=== PATIENT | female | born 1950 | race Asian ===

== ENCOUNTER 2017-02-19 07:32 | Day surgery (SDC) | payer OTHER ==
[~2017-02-19] VITALS: Ht 154.9 cm; Wt 58.5 kg
[2017-02-19 07:45] VITALS: BP 147/85
[2017-02-19 13:05] VITALS: BP 121/83
== END 2017-02-19 11:30 | disposition home or self-care (01) ==
LOC: DS 07:32 → EDSEX 07:32 → GI 09:30 → OR 09:30 → DS 11:30
PROVIDERS: Internal Medicine Gastroenterology
PROC: 0DBL8ZZ Excision of Transverse Colon, Via Natural or Artificial Opening Endoscopic (ICD-10-PCS; principal; 2017-02-19 09:30)
DX: Z12.11 Encounter for screening for malignant neoplasm of colon (principal); D12.3 Benign neoplasm of transverse colon
CPT/HCPCS: 45378; J1200; J1610; J2250; J2310; J3010; J3490